=== PATIENT | male | born 1940 | race Caucasian/White ===

== ENCOUNTER → 2021-07-12 | Outpatient (CLI) | payer MEDICARE, BC ==
[~2021-07-12] MED LIST: ABILIFY5 MG; ABILIFY5 MG PO; ASPI325T6 PO; ASPIRIN 32325 MG/TAB PO; ASPIRIN E.C. 8181 MG PO; BRILINTA90 MG PO; COZAAR 50MG50 MG/TAB PO; EFFEXOR 75M75 MG/TAB PO; EFFIENT10 MG PO; FOLIC ACID 11 MG/TA1 PO; GLUCOPHAGE500 MG/TAB PO; HUMALOG100 U/ML SC; IMDUR 60MG60 MG/TAB PO; JARDIANCE25 PO; LANTUS100 U/ML SQ; LEVOXYL0.075 MG PO; LOPRESSOR 225 MG/TAB PO; NEURONTIN100 MG/CAP PO; NITROSTAT0.4 MG/TAB SL; NOVOLOG 100U100 U/M1 SQ; ONE-A-DAY ESSE1 EACH PO; PLAVIX 75MG TAB75 MG PO; PRAVACHOL80 MG PO; PRILOSEC 20MG20 MG PO; PROZAC40 MG PO; TOPROL XL 25MG25 MG PO; TOUJEO300 U/ML SQ; ZESTRIL 5MG5 MG PO
[2021-07-12 15:34] LABS: BLOOD UREA NITROGEN 14 mg/dL (8-26); CALCIUM 9.7 mg/dL (8.4-10.2); CARBON DIOXIDE 23 mmol/L (23-31); CHLORIDE 101 mmol/L (98-107); CREATININE, serum 0.97 mg/dL (0.72-1.25); GLUCOSE 161 mg/dL (70-99); SODIUM 137 mmol/L (136-145); TROPONIN-I < 0.010 ng/mL (0.00-0.033)
[2021-07-12 15:37] LABS: ANION GAP 13 mmol/L (7-16)
== END ==
LOC: ZCOL.LAB 14:43
PROVIDERS: Nurse Practitioner
DX: R06.02 Shortness of breath (principal)

== ENCOUNTER → 2021-07-13 | Outpatient (CLI) | payer MEDICARE, BC ==
[~2021-07-13] MED LIST changes: -IMDUR 60MG60 MG/TAB PO; -JARDIANCE25 PO; -LEVOXYL0.075 MG PO; -ONE-A-DAY ESSE1 EACH PO; -PLAVIX 75MG TAB75 MG PO; -TOPROL XL 25MG25 MG PO; -TOUJEO300 U/ML SQ
== END ==
LOC: COL.RAD 09:13
DX: I25.10 Atherosclerotic heart disease of native coronary artery without angina pectoris (principal); K44.9 Diaphragmatic hernia without obstruction or gangrene; Z98.890 Other specified postprocedural states; R79.89 Other specified abnormal findings of blood chemistry
CPT/HCPCS: Q9967

== ENCOUNTER 2021-08-19 12:06 | Emergency (ER) | payer MEDICARE, BC ==
[~2021-08-19] VITALS: Ht 185.4 cm; Wt 97.7 kg
[2021-08-19 13:59] LABS: MUCOUS Present (NOT PRESENT); PH 5 (5-8); SQUAMOUS EPITHELIAL None Seen /hpf (0-10); URINE APPEARANCE Clear (CLEAR/HAZY); URINE BACTERIA None Seen (NONE SEEN); URINE BILIRUBIN Negative (NEGATIVE); URINE BLOOD Negative (NEGATIVE); URINE COLOR Yellow (YELLOW); URINE GLUCOSE 3+ (NEGATIVE); URINE KETONE Negative (NEGATIVE); URINE LEUKOCYTE ESTERASE Negative (NEGATIVE); URINE NITRATE Negative (NEGATIVE); URINE PROTEIN(semi-quant) Negative (NEGATIVE); URINE RBC 0-2 /hpf (0-2); URINE UROBILINOGEN Negative (NEGATIVE)
[2021-08-19 14:01] LABS: COLLECTION METHOD CLEAN CATCH
[2021-08-19 14:21] LABS: BASO % 0.5 % (0.0-2.0); EOS # 0.2 K/mm3 (0.0-0.7); EOS % 2.9 % (0.0-4.0); GRAN # 5.4 K/mm3 (1.4-6.5); HEMATOCRIT 44.2 % (42.0-52.0); HEMOGLOBIN 14.4 g/dl (13.5-18.0); LYMPH # 1.2 K/mm3 (1.2-3.4); LYMPH % 16.1 % (20.0-51.0); MEAN CELL VOLUME 91 fl (80.0-100.0); MEAN CORPUSCULAR HEMOGLOBIN 30 pg (27-31); MEAN CORPUSCULAR HGB CONC 33 g/dl (33.0-37.0); MEAN PLATELET VOLUME 11.2 fl (7.4-10.4); MONO # 0.6 K/mm3 (0.1-0.6); PLATELET COUNT 230 K/mm3 (130-400); RED BLOOD COUNT 4.84 M/mm3 (4.20-5.60); REDCELL DISTRIBUTION WIDTH-CV 12.3 % (11.5-14.5)
[2021-08-19 14:34] LABS: ALBUMIN 3.5 gm/dL (3.4-4.8); BILIRUBIN,TOTAL 0.5 mg/dL (0.2-1.2); CREATININE, serum 0.98 mg/dL (0.72-1.25); POTASSIUM 4.5 mmol/L (3.5-4.5); TOTAL PROTEIN 7.1 gm/dL (6.2-8.1)
[2021-08-19 16:20] VITALS: BP 123/62; PULSE 65; TEMP 98.2
== END 2021-08-19 16:23 | disposition home or self-care (01) ==
LOC: COL.ER 12:06
PROVIDERS: Student in an Organized Health Care Education/Training Program
DX: R33.9 Retention of urine, unspecified (principal); J45.909 Unspecified asthma, uncomplicated; I25.2 Old myocardial infarction

== ENCOUNTER 2021-08-24 09:15 | Day surgery (SDC) | payer MEDICARE, BC ==
[~2021-08-24] VITALS: Ht 185.4 cm; Wt 98.0 kg
[2021-08-24] VITALS (10 sets, daily range): BP systolic 100–139; BP diastolic 45–85; PULSE 66–85; TEMP 97.7–98.9
[2021-08-24] MEDS ORDERED: IMDUR 60MG60 MG/TAB PO (09:45)
[2021-08-24] MEDS ORDERED: LEVOXYL0.075 MG PO (09:46)
[2021-08-24] MEDS ORDERED: JARDIANCE25 PO (09:47)
[2021-08-24] MEDS ORDERED: TOUJEO300 U/ML SQ (09:47)
[2021-08-24] MEDS ORDERED: ONE-A-DAY ESSE1 EACH PO (15:56)
[2021-08-24] MEDS ORDERED: TOPROL XL 25MG25 MG PO (15:58)
[2021-08-24] MEDS ORDERED: PLAVIX 75MG TAB75 MG PO (15:59)
--- NOTE | 2021-08-24 17:00 | NUR ---
Pt is resting comfortably in bed, denies needs, at bedside for most of afternoon. Urine peach and clear draining with CBI going at slower rate. Resting, taking PO well, denies pain or other needs, will continue to monitor.
--- NOTE | 2021-08-24 21:38 | NUR ---
PT RESTING IN BED. DENIES PAIN. CBI INFUSING AT SLOW RATE WITH YELLOW URINE RETURN.
[2021-08-25 04:51] VITALS: BP 125/67; PULSE 61; TEMP 97.9
[2021-08-25 08:05] VITALS: BP 109/52; PULSE 71; TEMP 97.2
--- NOTE | 2021-08-25 08:17 | NUR ---
Pt doing well this morning. CBI off from shift change, output is clear yellow in [facility] bag. Dr Humphries has been in to see pt, plan is for discharge today. Pt tolerated general diet, no needs or complaints at this time.
--- NOTE | 2021-08-25 10:30 | NUR ---
Reviewed discharge instructions with pt and his . Both verbalized understanding. Sent home extra catheter bag and reviewed catheter care and switching bags. INT removed from right forearm. Informed he can get dressed and to ring call light when he ready to be excorted out.
--- NOTE | 2021-08-25 11:00 | NUR ---
Pt escorted out at this time
== END 2021-08-25 11:05 | disposition home or self-care (01) ==
LOC: SDCO 09:15 → SURG 12:55 → SDCO 08-25 11:05
DX: N30.00 Acute cystitis without hematuria (principal); N40.1 Benign prostatic hyperplasia with lower urinary tract symptoms; R33.8 Other retention of urine; R31.0 Gross hematuria; I10 Essential (primary) hypertension; I25.2 Old myocardial infarction; I25.10 Atherosclerotic heart disease of native coronary artery without angina pectoris; G47.33 Obstructive sleep apnea (adult) (pediatric); K21.9 Gastro-esophageal reflux disease without esophagitis; M19.90 Unspecified osteoarthritis, unspecified site; E11.9 Type 2 diabetes mellitus without complications; F32.A Depression, unspecified; Z79.01 Long term (current) use of anticoagulants; Z95.1 Presence of aortocoronary bypass graft; Z79.82 Long term (current) use of aspirin; Z79.899 Other long term (current) drug therapy; Z79.84 Long term (current) use of oral hypoglycemic drugs
CPT/HCPCS: OP; J1815; J7120; Q9967

== ENCOUNTER 2021-09-13 11:13 | Day surgery (SDC) | payer MEDICARE, BC ==
[~2021-09-13] VITALS: Ht 185.4 cm; Wt 94.3 kg
[2021-09-13] VITALS (10 sets, daily range): BP systolic 92–122; BP diastolic 37–64; PULSE 68–88; TEMP 97.2–97.7
[~2021-09-13 11:13] MED LIST changes: +IMDUR 60MG60 MG/TAB PO; +JARDIANCE25 PO; +LEVOXYL0.075 MG PO; +ONE-A-DAY ESSE1 EACH PO; +PLAVIX 75MG TAB75 MG PO; +TOPROL XL 25MG25 MG PO; +TOUJEO300 U/ML SQ
[2021-09-13] MEDS ORDERED: GLUCOPHAGE500 MG/TAB PO ×2 (12:21)
[2021-09-13] MEDS ORDERED: PRAVACHOL 40MG40 MG PO (12:26)
[2021-09-13] MEDS ORDERED: NOVOLOG 100U100 U/M1 SQ (12:28)
[2021-09-13] MEDS ORDERED: IMDUR 60MG60 MG/TAB PO (12:28)
[2021-09-13] MEDS ORDERED: TOUJEO300 U/ML SQ (12:29)
--- NOTE | 2021-09-13 16:23 | NUR ---
arrived on unit per bed from PACU, awake and alert, IV infusing per gravity, O2 on at 2L/NC, O2 sats 98%, CBI infusing slow and urine is pale yellow, is at bedside, c/o some pain\discomfort around penis but states it is better than it was, full assessment completed, see interventions for further info,
--- NOTE | 2021-09-13 16:30 | NUR ---
given sips of water and tolerates well, blood sugar obtained and it is89, he requests apple juice at this time and it is provided
--- NOTE | 2021-09-13 16:45 | NUR ---
states he is feeling better since having apple juice, denies nausea, instructed on ordering regular food, verbalizes understanding
--- NOTE | 2021-09-13 17:50 | NUR ---
c/o discomfort and medicated with tylenol
--- NOTE | 2021-09-13 19:05 | NUR ---
RECEIVED CHANGE OF SHIFT REPORT FROM DAY SHIFT RN.
--- NOTE | 2021-09-13 19:08 | NUR ---
had supper and tolerated well, bedside shift report given to Oneida Cifuentes
--- NOTE | 2021-09-13 19:09 | NUR ---
bedside shift report given to ROSALIA Cifuentes
--- NOTE | 2021-09-13 21:27 | NUR ---
FSBS CHECKED AT 48, TREATED WITH OJ AND 2 PACKETS OF SUGAR. SPEECH APPROPRIATE, INSULIN NOT GIVEN AT THIS TIME, METFORMIN NOT GIVEN AT THIS TIME. CBI RATE INFUSING SLOW WITH SORTO OUTPUT CLEAR WITH NO SEDIMENT SEEN.
[2021-09-14 03:28] VITALS: BP 117/56; PULSE 67; TEMP 98.2
--- NOTE | 2021-09-14 06:52 | NUR ---
awake resting in bed looking at tablet, bedside shift report received from ROSALIA Cifuentes, will order breakfast soon
--- NOTE | 2021-09-14 07:11 | NUR ---
CBI infusing slowly and urine is red in tubing but without clots, CBI rate increased, full assessment completed, see interventions for further info,
--- NOTE | 2021-09-14 07:22 | NUR ---
CHANGE OF SHIFT REPORT GIVEN TO DAY SHIFT FRIDA LINDSEY.
--- NOTE | 2021-09-14 08:01 | NUR ---
sitting up in bed eating breakfast, urine is light pink now, CBI infusing
[2021-09-14 08:42] VITALS: BP 111/43; PULSE 66; TEMP 97.9
--- NOTE | 2021-09-14 08:45 | NUR ---
RXM completed on admission and again when he returned to the unit after surgery, brought in his medicine bottles this am and the metoprolol dose was incorrect, this has been corrected
--- NOTE | 2021-09-14 09:30 | NUR ---
urine is light pink to yellow, CBI continues
--- NOTE | 2021-09-14 10:24 | NUR ---
Initial visit; Patient thanked Floor Specialist for looking in on him and offering God's blessings.
--- NOTE | 2021-09-14 10:50 | NUR ---
resting in bed, with at bedside, has ordered lunch,
--- NOTE | 2021-09-14 11:09 | NUR ---
bedisde shift report given to ROSALIA Fagan
--- NOTE | 2021-09-14 11:10 | NUR ---
TAKING OVER PATIENT'S CARE. RECEIVED REPORT FROM ROSALIA GALICIA. PATIENT RESTING WITH NO NEEDS. CBI INFUSING VERY SLOW. SORTO TO DD WITH MOD AMOUNTS OF YELLOW URINE NOTED. EAT/DRINKING SUFFICENT AMOUNTS. AT BEDSIDE.
[2021-09-14 11:48] VITALS: BP 105/47; PULSE 69
[2021-09-14] MEDS ORDERED: GLUCOPHAGE XR500 M1 PO (13:09)
--- NOTE | 2021-09-14 14:14 | NUR ---
general utility worker met with patient to discuss discharge plan. Patient reports that he lives at home with his Irene ([phone]) in [place]. Patient reports that he is fully independent with his activities of daily living and does not utilize any DME to assist with mobility. PCP is Dr. Carlos and he utilizes [facility] in with no cost difficulty. Patient has no oxygen needs at home.Patient states he does have a [facility]PO[facility] established. Contact made with 's office, who states that the patient just established with them and has not brought in a copy of his DPO[facility] yet. Patient is planning on returning home with no concerns. Discharge plan: Home with spouse.
[2021-09-14 16:16] VITALS: BP 106/49; PULSE 65; TEMP 97.8
[2021-09-14 19:33] VITALS: BP 114/59; PULSE 72; TEMP 98.2
--- NOTE | 2021-09-14 20:00 | NUR ---
Assessment completed, alert/oriented, vital signs stable, denies pain, CBI is running very slowly and output is clear with a very light shade of pink, overall patient is feeling well and hoping ot go home tommorow, evening meds given, patient had dinner and denies needs
[2021-09-14 23:56] VITALS: BP 127/56; PULSE 64; TEMP 98.1
[2021-09-15 03:41] VITALS: BP 137/63; PULSE 63; TEMP 97.7
[2021-09-15 08:02] VITALS: BP 109/62; PULSE 61; TEMP 97.6
--- NOTE | 2021-09-15 09:18 | NUR ---
Claire catheter removed per order. Educated pt on voiding in urinal and to notify nursing each time he has to void. Pt not happy with the food here, so did not eat much for breakfast. No other needs, will continue to monitor
[2021-09-15 11:12] VITALS: BP 115/59; PULSE 63; TEMP 97.3
--- NOTE | 2021-09-15 11:19 | NUR ---
Pt has not voided yet. Encouraged him to get up and walk around to see if that would help. Also couraged him to drink plenty of water
--- NOTE | 2021-09-15 13:00 | NUR ---
Pt voiding now with no difficulty. Pt hopeful to get to go home. Pts at bedside
--- NOTE | 2021-09-15 15:45 | NUR ---
Dr Humphries has been in and discharged pt. Reviewed discharge instructions with pt and his . Reminded to start blood thinner on Saturday. All questions answered, pt escorted out
== END 2021-09-15 15:59 | disposition home or self-care (01) ==
LOC: SDCO 11:13 → SURG 16:23 → SDCO 09-15 15:59
DX: C61 Malignant neoplasm of prostate (principal); N40.1 Benign prostatic hyperplasia with lower urinary tract symptoms; R33.8 Other retention of urine; I25.10 Atherosclerotic heart disease of native coronary artery without angina pectoris; I10 Essential (primary) hypertension; I25.2 Old myocardial infarction; E11.9 Type 2 diabetes mellitus without complications; E03.9 Hypothyroidism, unspecified; G47.33 Obstructive sleep apnea (adult) (pediatric); J45.20 Mild intermittent asthma, uncomplicated; Z79.82 Long term (current) use of aspirin; Z79.899 Other long term (current) drug therapy; Z95.1 Presence of aortocoronary bypass graft; Z79.84 Long term (current) use of oral hypoglycemic drugs; Z79.02 Long term (current) use of antithrombotics/antiplatelets; Z79.01 Long term (current) use of anticoagulants
CPT/HCPCS: OP; J0690; J1815; J2270; J2405; J2704; J3010; J7030